=== PATIENT | male | born 1950 | race Caucasian/White ===

== ENCOUNTER → 2017-01-10 | Outpatient (CLI) | payer BC, OTHER | LOC: MW.CHFP 10:50 | PROVIDERS: ATTEND Emergency Medicine | DX: Z12.5 Encounter for screening for malignant neoplasm of prostate (principal); R53.83 Other fatigue | CPT/HCPCS: 36415; 84443; 85025; G0103 ==

== ENCOUNTER 2020-01-02 20:14 | Emergency (ER) | payer OTHER, MEDICARE ==
[2020-01-02] MEDS ORDERED: Sodium Chloride 0.9% 1,000 ML IV ONE ×2 (20:42→21:56)
[2020-01-02] MEDS ORDERED: HYDROmorphone 1 MG/ML Syringe IVPUSH ONE ×3 (20:43→22:49)
[2020-01-02] MEDS ORDERED: Ondansetron 4 MG/2 ML SDV IVPUSH ONE (20:44)
--- NOTE | 2020-01-02 20:50 | EDM.PDOC ---
ED HPI GENERAL MEDICAL PROBLEM - General Chief Complaint: Abdominal Pain Stated Complaint: ABD PAIN Time Seen by Provider: 01/02/20 20:35 Source of Information: Reports: Patient - History of Present Illness INITIAL COMMENTS - FREE TEXT/NARRATIVE: This is a 69-year-old male who presents the emergency room with a chief complaint of right lower abdominal pain nausea and vomiting since last night. She denies chest pain or shortness of breath or cough. The patient's has allergies to erythromycin/trench mouth. Has no history of abdominal surgeries. Patient has a history of Crohn's disease and has multiple colonoscopies. Patient also history has a history of Monahan's esophagitis. His pain scale is 10 out of a 10 at this time 6 out of 10 Duration: Day(s): (2), Getting Worse Location: Reports: Abdomen Quality: Reports: Ache Severity: Severe Improves with: Reports: None Worsens with: Reports: None Associated Symptoms: Reports: Nausea/Vomiting Lower Abdominal Pain Score (Numeric/FACES): 10 - Related Data Allergies Allergy/AdvReac Type Severity Reaction Status Date / Time erythromycin base Allergy Trench Verified 01/02/20 20:25 Mouth Home Meds: Home Meds Pantoprazole [Protonix] 40 mg PO BID 12/07/14 [History] Past Medical History Gastrointestinal History: Reports: GERD - Infectious Disease History Infectious Disease History: Reports: Chicken Pox, Mumps - Past Surgical History Musculoskeletal Surgical History: Reports: Shoulder Surgery, Other (See Below) Other Musculoskeletal Surgeries/Procedures:: elbow surgery. jaw bone grafts Social & Family History - Family History Family Medical History: Noncontributory - Tobacco Use Smoking Status *Q: Former Smoker Used Tobacco, but Quit: Yes Month/Year Tobacco Last Used: 2002 - Caffeine Use Caffeine Use: Reports: None - Recreational Drug Use Recreational Drug Use: No ED ROS GENERAL - Review of Systems Review Of Systems: See Below Constitutional: Reports: No Symptoms HEENT: Reports: No Symptoms Respiratory: Reports: No Symptoms, Other ( No History of travel/cruise ships). Denies: Shortness of Breath, Wheezing, Cough, Sputum Endocrine: Reports: No Symptoms GI/Abdominal: Reports: Abdominal Pain, Nausea, Vomiting : Denies: No Symptoms, Discharge Musculoskeletal: Reports: No Symptoms Skin: Reports: No Symptoms Neurological: Reports: No Symptoms Psychiatric: Reports: No Symptoms Hematologic/Lymphatic: Reports: No Symptoms Immunologic: Reports: No Symptoms ED EXAM, GI/ABD - Physical Exam Exam: See Below Text/Narrative:: This is a 69-year-old male who presents the emergency room with acute abdominal pain for day and a half. On exam HEENT is negative lungs are clear the majority of the exam is the abdomen. Patient has normal active bowel sounds with some distention. Patient has acute right lower quadrant tenderness with rebound tenderness. Patient's extremities are negative. Exam Limited By: No Limitations General Appearance: Alert, WD/WN, Moderate Distress Eyes: Bilateral: Normal Appearance Ears: Normal External Exam, Normal Canal, Hearing Grossly Normal Nose: Normal Inspection, Normal Mucosa Throat/Mouth: Normal Inspection, Normal Lips, Normal Teeth, Normal Oropharynx, Normal Voice Head: Atraumatic, Normocephalic Neck: Normal Inspection, Supple, Non-Tender Respiratory/Chest: No Respiratory Distress, Lungs Clear, Normal Breath Sounds, No Accessory Muscle Use, Chest Non-Tender Cardiovascular: Normal Peripheral Pulses, Regular Rate, Rhythm, No Edema GI/Abdominal Exam: Normal Bowel Sounds, Guarding, Rigid, Rebound, Tender. No: Hernia, Hepatomegaly, Splenomegaly (Male) Exam: Deferred Back Exam: Normal Inspection, Full Range of Motion Extremities: Normal Inspection, Normal Range of Motion Neurological: Alert, Oriented, CN II-XII Intact, Normal Cognition Psychiatric: Normal Affect, Normal Mood Skin Exam: Warm, Dry, Intact, Normal Color, No Rash Lymphatic: No Adenopathy Course - Vital Signs Text/Narrative:: 69-year-old gentleman presents to the emergency room with abdominal pain. Patient felt to have possible appendicitis patient was tachycardic up to 127. Patient's blood pressure however was 130/85. Patient had a white count of 25, 000 and SIRS criteria where his lactate was elevated 2.4. Patient was given 3 3g of Unasyn and 500 mg of Flagyl. Patient's pain was taken care of with Dilaudid 1 mg x 2. Patient was also given Zofran for nausea. Patient also has received 1 L of fluid and is on a second liter of fluid at this time. Patient CT scan shows Crohn's disease acute on chronic with microperforations. Surgical consult was performed by Dr. Schaefer over the phone and he suggested the patient be transferred to a facility where they have GI and surgery. A consult was done also on the phone with Dr. Perez. He states that he has to abide by what surgery has suggested I have discussed the case with Dr. Rg at [facility] . Accepted the patient. Patient has not been on steroids. Patient has a EKG which shows tachycardia at 127 with no acute changes. Electrolytes are abnormal. Patient is in the process of getting IV fluids and a repeat x-ray is in the works within the next hour. She is stable for transfer and will be transferred to a higher level of care hospital Repeat evaluation at 1110. Patient awake and alert and oriented. Patient's heart rate still 123, patient states he is always has a high heart rate. Blood pressure 138/83 Patient's lungs are clear Heart: Patient is tachycardic at 123 EKG shows no acute changes Abdomen generalized abdominal pain to palpation. Patient is still guarding. Patient informed that he will be transferred for higher level of care/we do not have GI at this facility I discussed with an accepting physician Dr. Rg. Patient will be transferred by embossing unit operator/monitored Diagnosis: I. Abdominal pain with acute Crohn'se on chronic Crohn's 2. Microperforation of the ileum III. Septic/elevated white count, elevated lactate, elevated heart rate Last Recorded V/S: Last Vital Signs Temp 97.8 F 01/02/20 20:26 Pulse 124 H 01/02/20 21:56 Resp 16 01/02/20 21:56 BP 137/70 01/02/20 21:56 Pulse Ox 96 01/02/20 21:56 - Orders/Labs/Meds Orders: Active Orders 24 hr Category Date Time Status EKG Documentation Completion [RC] STAT Care 01/02/20 21:02 Active CULTURE BLOOD [BC] Stat Lab 01/02/20 21:00 Received CULTURE BLOOD [BC] Stat Lab 01/02/20 21:16 Received UA W/JESSICA RFLX IF INDICATED [URIN] Stat Lab 01/02/20 20:41 Ordered Blood Culture x2 Reflex Set [OM.PC] Stat Oth 01/02/20 21:00 Ordered Labs: Laboratory Tests 01/02/20 01/02/20 01/02/20 Range/Units 20:40 20:40 20:40 WBC 25.02 H (4.0-11.0) K/uL RBC 5.26 (4.50-5.90) M/uL Hgb 16.8 (13.0-17.0) g/dL Hct 49.2 (38.0-50.0) % MCV 93.5 (80.0-98.0) fL MCH 31.9 (27.0-32.0) pg MCHC 34.1 (31.0-37.0) g/dL RDW Std Deviation 45.3 (28.0-62.0) fl RDW Coeff of Golden 13 (11.0-15.0) % Plt Count 343 (150-400) K/uL MPV 9.30 (7.40-12.00) fL Neut % (Auto) 92.3 H (48.0-80.0) % Lymph % (Auto) 2.6 L (16.0-40.0) % Windsor % (Auto) 5.0 (0.0-15.0) % Eos % (Auto) 0.0 (0.0-7.0) % Baso % (Auto) 0.1 (0.0-1.5) % Neut # (Auto) 23.1 H (1.4-5.7) K/uL Lymph # (Auto) 0.7 (0.6-2.4) K/uL Windsor # (Auto) 1.3 H (0.0-0.8) K/uL Eos # (Auto) 0.0 (0.0-0.7) K/uL Baso # (Auto) 0.0 (0.0-0.1) K/uL Nucleated RBC % 0.0 /100WBC Nucleated RBCs # 0 K/uL Lactate 2.4 H* (0.20-2.00) mmol/L Sodium 139 (136-148) mmol/L Potassium 4.6 (3.5-5.1) mmol/L Chloride 103 (98-107) mmol/L Carbon Dioxide 21.6 (21.0-32.0) mmol/L BUN 13 (7.0-18.0) mg/dL Creatinine 1.2 (0.8-1.3) mg/dL Est Cr Clr Drug Dosing 63.62 mL/min Estimated GFR (MDRD) > 60.0 ml/min Glucose 173 H (74-106) mg/dL Calcium 8.8 (8.5-10.1) mg/dL Total Bilirubin 0.8 (0.2-1.0) mg/dL AST 23 (15-37) IU/L ALT 46 (14-63) IU/L Alkaline Phosphatase 63 (46-116) U/L Total Protein 7.2 (6.4-8.2) g/dL Albumin 3.7 (3.4-5.0) g/dL Globulin 3.5 (2.6-4.0) g/dL Albumin/Globulin Ratio 1.1 (0.9-1.6) Meds: Medications Discontinued Medications Generic Name Dose Route Start Last Admin Trade Name Freq PRN Reason Stop Dose Admin Hydromorphone HCl 1 mg 01/02/20 20:43 01/02/20 20:51 Dilaudid IVPUSH 01/02/20 20:44 1 mg ONETIME ONE Administration Hydromorphone HCl 1 mg 01/02/20 22:48 Dilaudid IVPUSH 01/02/20 22:49 ONETIME ONE Hydromorphone HCl 1 mg 01/02/20 22:49 Dilaudid IVPUSH 01/02/20 22:50 ONETIME ONE Sodium Chloride 1,000 mls @ 999 mls/hr 01/02/20 20:42 01/02/20 20:51 Normal Saline IV 01/02/20 21:42 999 mls/hr .Bolus ONE Administration Ampicillin Sodium/Sulbactam 100 mls @ 200 mls/hr 01/02/20 21:06 01/02/20 21: 45 Sodium 3 gm/ Sodium Chloride IV 01/02/20 21:35 200 mls/hr ONETIME ONE Administration Metronidazole 500 mg/ Premix 100 mls @ 100 mls/hr 01/02/20 21:07 01/02/20 21: 22 IV 01/02/20 22:06 100 mls/hr ONETIME ONE Administration Sodium Chloride 1,000 mls @ 1,000 drops/min 01/02/20 21:56 01/02/20 22:03 Normal Saline IV 01/02/20 22:10 1,000 drops/min .Bolus ONE Administration Iopamidol 100 ml 01/02/20 21:14 01/02/20 21:38 Isovue-370 (76%) IVPUSH 01/02/20 21:15 100 ml ONETIME STA Administration Ondansetron HCl 4 mg 01/02/20 20:44 01/02/20 20:51 Zofran IVPUSH 01/02/20 20:45 4 mg ONETIME ONE Administration Departure - Departure Time of Disposition: 23:19 Disposition: DC/Tfer to Acute Hospital 02 Condition: Good Clinical Impression: Acute Crohn's disease with complication Sepsis Qualifiers: Severe sepsis shock status: unspecified - Discharge Information Instructions: Crohn's Disease Referrals: Giuseppe Real MD [Primary Care Provider] - Forms: ED Department Discharge Sepsis Event Note - Evaluation Sepsis Screening Result: No Definite Risk - Focused Exam Vital Signs: Vital Signs Temp Pulse Resp BP Pulse Ox 01/02/20 21:56 124 H 16 137/70 96 01/02/20 20:51 125 H 16 138/85 93 L 01/02/20 20:26 97.8 F 127 H 19 138/85 94 L Date Exam was Performed: 01/02/20 Time Exam was Performed: 23:02 - My Orders Last 24 Hours: My Active Orders 01/02/20 20:41 UA W/JESSICA RFLX IF INDICATED [URIN] Stat 01/02/20 21:00 CULTURE BLOOD [BC] Stat Blood Culture x2 Reflex Set [OM.PC] Stat 01/02/20 21:02 EKG Documentation Completion [RC] STAT 01/02/20 21:16 CULTURE BLOOD [BC] Stat - Assessment/Plan Last 24 Hours: My Active Orders 01/02/20 20:41 UA W/JESSICA RFLX IF INDICATED [URIN] Stat 01/02/20 21:00 CULTURE BLOOD [BC] Stat Blood Culture x2 Reflex Set [OM.PC] Stat 01/02/20 21:02 EKG Documentation Completion [RC] STAT 01/02/20 21:16 CULTURE BLOOD [BC] Stat
[2020-01-02] MEDS ORDERED: Ampicillin/Sulbactam Na 3 GM in Sodium Chloride 0.9% 100 ML IV ONE (21:06)
[2020-01-02 21:07] LABS: BLOOD UREA NITROGEN,BUN 13 mg/dL (7.0-18.0); CARBON DIOXIDE,CO2 21.6 mmol/L (21.0-32.0); CHLORIDE,CL 103 mmol/L (98-107); GLUCOSE RANDOM 173 mg/dL (74-106); POTASSIUM,K 4.6 mmol/L (3.5-5.1); SODIUM,NA 139 mmol/L (136-148)
[2020-01-02] MEDS ORDERED: metroNIDAZOLE/Normal Saline 500 MG in Premix Bag 1 BAG IV ONE (21:07)
[2020-01-02] MEDS ORDERED: Iopamidol 755 Mg/ML 100 ML Bottle IVPUSH STA (21:14)
--- NOTE | 2020-01-02 21:39 | CR ---
Chest: Portable view of the chest was obtained. Comparison: No prior chest imaging is available. Elevated right hemidiaphragm is seen most likely chronic. Lungs are clear with no acute parenchymal change. Bony structures are grossly intact. Impression: 1. Nothing acute is appreciated on portable chest x-ray. Diagnostic code #2 Study was dictated in [place] Standard Time
--- NOTE | 2020-01-02 22:19 | CT ---
HISTORY: Right lower quadrant pain. TECHNIQUE: Contrast-enhanced CT abdomen and pelvis 100 mL Isovue. COMPARISON: Studies are available. FINDINGS: Heart size is normal. Basilar atelectasis. No pericardial effusion. No pleural effusion. Fluid filled distal esophagus. Basilar atelectasis liver pancreas spleen adrenal glands are unremarkable. Cholelithiasis. Kidneys appear unremarkable too small to characterize tiny low-density lesions both kidneys. No hydronephrosis. Normal caliber abdominal aorta. Heterogeneity and enlargement prostate gland. Urinary bladder appears unremarkable. Normal appendix. Moderate to long terminal segment of terminal ileum with mural thickening and enhancement. Prominent perienteric vascularity with prominent fibrofatty infiltration. Tiny focal area of extraluminal air adjacent to the terminal ileum see series 203, image 38 and series 201, image 1 5 which may represent micro perforation Multifocal areas of stenosis involving the distal ileal bowel loops. No obvious obstruction. Bowel wall thickening of the cecum as well. Normal appendix. Small amount of fluid in the pelvis. Fat containing inguinal hernias. No suspicious bony lesions are seen. Impression: 1. Moderate long segment of mural thickening and enhancement of the terminal ileum with multifocal areas of stenosis as well. Perienteric inflammatory change and increased vascularity. There is a tiny focal area of extraluminal air adjacent to the terminal ileum which may represent microperforation. Findings suggest acute on chronic Crohn`s. 2. Heterogeneous and enlargement of the prostate gland. Please note that all CT scans at this facility use dose modulation, iterative reconstruction, and/or weight-based dosing when appropriate to reduce radiation dose to as low as reasonably achievable. Dictated by Payal Interiano MD @ Jan 02 2020 9:58PM Signed by Dr. Payal Interiano @ Jan 02 2020 10:18PM
[2020-01-03] MEDS ORDERED: Sodium Chloride 0.9% 1,000 ML IV ONE (00:11)
[2020-01-03] MEDS ORDERED: Ondansetron 4 MG/2 ML SDV IVPUSH ONE (00:15)
[2020-01-03] MEDS ORDERED: HYDROmorphone 1 MG/ML Syringe IVPUSH ONE (00:15)
== END 2020-01-03 00:30 ==
LOC: MW.ED 20:14
DX: A41.9 Sepsis, unspecified organism (principal); K50.90 Crohn's disease, unspecified, without complications; K63.1 Perforation of intestine (nontraumatic); R74.0 Nonspecific elevation of levels of transaminase and lactic acid dehydrogenase [LDH]; D72.829 Elevated white blood cell count, unspecified; K21.9 Gastro-esophageal reflux disease without esophagitis; Z88.1 Allergy status to other antibiotic agents; Z79.899 Other long term (current) drug therapy; Z87.891 Personal history of nicotine dependence
CPT/HCPCS: 36415; 71045; 74177; 80053; 81003; 83605; 85025; 87040; 87075; 93005; 99285; J0295; J1170; J2405; J3490; J7030; J7050; Q9967; 99284

== ENCOUNTER 2020-01-25 06:41 | Emergency (ER) | payer OTHER, MEDICARE ==
[2020-01-25] MEDS ORDERED: Iopamidol 755 MG/ML 500 ML Multipack Bottle IVPUSH STA (08:26)
[2020-01-25 08:48] LABS: BLOOD UREA NITROGEN,BUN 16 mg/dL (7.0-18.0); CARBON DIOXIDE,CO2 22.3 mmol/L (21.0-32.0); CHLORIDE,CL 101 mmol/L (98-107); GLUCOSE RANDOM 118 mg/dL (74-106); LIPASE 139 U/L (73-393); POTASSIUM,K 3.9 mmol/L (3.5-5.1); SODIUM,NA 136 mmol/L (136-148)
--- NOTE | 2020-01-25 08:50 | CT ---
CT abdomen and pelvis Technique: Multiple axial sections were obtained from above the dome of the diaphragm inferiorly through the pubic symphysis. Intravenous contrast was utilized. No oral contrast has been given. Comparison: Prior CT abdomen and pelvis exam of 01/25/20. Findings: 2 adjacent calculi are noted within the distal CBD. Collectively these measure about 4.7 mm. No other abnormal calcifications are seen within the CBD. Gallbladder is mildly dilated. No calcified gallstones are seen. Mild intrahepatic biliary duct dilatation is seen. Visualized lung bases show nothing acute. Liver contains no focal parenchymal abnormality. Small hiatal hernia is noted. Spleen appears normal. Adrenal glands show contrast enhancement. Small low density finding is noted within the left kidney measuring about 5 mm most likely representing a minimal cyst. Small cortical lesion also seen within the right kidney measuring about 7 mm also most likely due to a small cyst. No additional abnormalities are seen within the kidneys. Pancreas shows no discrete abnormality. Aorta shows no aneurysm with mild atherosclerotic change. Atherosclerotic change continues into the iliac vessels. No retroperitoneal adenopathy or mesenteric abnormalities are seen. No pelvic mass or adenopathy is seen. No free fluid or inflammatory change is seen. Small fat-containing bilateral inguinal hernias are noted. Appendix is seen which is normal in size. Bone window settings were reviewed. Slight scattered degenerative change is noted. No acute osseous finding is seen. Impression: 1. 2 small adjacent calcified CBD stones are seen distally within the CBD. Intrahepatic and mild extrahepatic biliary duct dilatation is seen as well as dilated gallbladder. One calcification is seen more proximally within the CBD or gallbladder on prior exam with dilated CBD and intrahepatic biliary duct dilatation on current study representing an interval change. 2. Small hiatal hernia. 3. Other findings believed to be incidental and nonacute as described above. Diagnostic code #3 This report was dictated in MDT
[2020-01-25] MEDS ORDERED: Sodium Chloride 0.9% 1,000 ML IV ONE (09:16)
--- NOTE | 2020-01-25 10:04 | EDM.PDOC ---
ED HPI GENERAL MEDICAL PROBLEM - General Chief Complaint: General Stated Complaint: YELLOW EYES Time Seen by Provider: 01/25/20 07:07 - History of Present Illness INITIAL COMMENTS - FREE TEXT/NARRATIVE: HPI 69 year old male with history of Crohns disease, Barretts esophagus, and recent sepsis 2/2 microperforation of the ileum presents with ~1 day of new onset jaundice, one week of light colored floating stools and recent onset dark urine. No fevers, chills, malaise, or pruritus. M/S/F/SocHx notable for: please see HPI; remainder reviewed with patient and in chart. ROS: Negative constitutional, eye, cardiovascular, pulmonary, GI, , MSK, skin , neurologic, psychiatric, endocrine unless noted in the HPI. Exam HR 108, RR 16, BP 126/72, T 35.6C, SaO2 97% on room air at 6:53 AM. Gen: Pleasant, non-toxic appearing, resting comfortably. HEENT: NC, AT, PEERL, EOMI. Resp: Clear to auscultation bilaterally, normal work of breathing, no accessory muscle usage. Card: Regular rate and rhythm with no murmurs, rubs, or gallops, extremities warm and well perfused. GI: Non-tender to palpation throughout all quadrants, no focal tenderness at McBurney's point, negative Moreno's sign, non-distended, no rebound or guarding. : No suprapubic tenderness to palpation. MSK: No visible deformities, strength and tone without visually appreciable deficit. Skin: jaundice, otherwise normal color with no further visible lesions. Neuro: alert and oriented 3, no facial asymmetry, vision and hearing WNL. Psych: Mood and affect appropriate. Labs / Imaging: WBC 7.7, HB 14.3, sodium 136, potassium 3.9, total bilirubin 11.2, AST 114, ALT 263, alkaline phosphatase 388, lipase 139. CT Abd/Pelvis: 1. 2 small adjacent calcified CBD stones are seen distally within the CBD. Intrahepatic and mild extrahepatic biliary duct dilatation is seen as well as dilated gallbladder. One calcification is seen more proximally within the CBD or gallbladder on prior exam with dilated CBD and intrahepatic biliary duct dilatation on current study representing an interval change. 2. Small hiatal hernia. MDM Previous chart, nursing note, labs, imaging, and vitals reviewed. A: 69 year old male with history of Crohns disease, Barretts esophagus, and recent sepsis 2/2 microperforation of the ileum presents with ~1 day of new onset jaundice, one week of light colored floating stools and recent onset dark urine. DDx: cholelithiasis, cholangitis, cholecystitis, choledocholithiasis, mass. Evaluation: imaging with multiple CBD stones and ductal dilatation, given the liver enzyme elevation with a total bilirubin 11.2, along with the non-toxic appearance, and a normal white blood cell count strongly suspect choledocholithiasis without further complications. ED Course: 1. Suspect initial vitals to be inaccurate. Rechecked by myself at 7:15 AM with a resting heart rate of 83, BP of 119/70. 2. 1 L NS given. 3. 09:20 - general surgery paged. 4. 09:31 - discuss case with the general surgeon economic historian, Dr. Cantu. Patient cannot be appropriately care for this facility, recommended transfer to [place]. 5. 09:40 Dr. Bonner, GI physician economic historian. Patient be appropriate for intervention. Requested patient be accepted by hospitalist. 6. 09:47 - Dr. Nicoel (hospitalist), patient accepted in transfer. Disposition: patient wished to be transferred by private vehicle, transferred to [facility] in [facility]. Patient advised of increased risk by traveling by POV and made an informed decision to decline ambulance transfer. Impression: choledocholithiasis. (please reference below for remainder of encounter information) Critical Care Time Organ system(s): GI Intervention: Assessment of the patient, interpretation of studies, communication related to patient care. Time: 30 minutes were spent directly related to patient care exclusive of separately billed procedures. - Related Data Allergies Allergy/AdvReac Type Severity Reaction Status Date / Time erythromycin base Allergy Trench Verified 01/25/20 07:01 Mouth Home Meds: Home Meds Pantoprazole [Protonix] 40 mg PO BID 12/07/14 [History] Past Medical History HEENT History: Reports: Impaired Vision Gastrointestinal History: Reports: GERD, Other (See Below) Other Gastrointestinal History: chron's, micro perf in illium. - Infectious Disease History Infectious Disease History: Reports: Measles, Mumps - Past Surgical History Musculoskeletal Surgical History: Reports: Shoulder Surgery, Other (See Below) Other Musculoskeletal Surgeries/Procedures:: elbow surgery. jaw bone grafts Social & Family History - Family History Family Medical History: Noncontributory - Tobacco Use Smoking Status *Q: Former Smoker Used Tobacco, but Quit: Yes Month/Year Tobacco Last Used: 2002 - Caffeine Use Caffeine Use: Reports: None - Recreational Drug Use Recreational Drug Use: No ED ROS GENERAL - Review of Systems Review Of Systems: See Below ED EXAM, GENERAL - Physical Exam Exam: See Below Course - Vital Signs Last Recorded V/S: Last Vital Signs Temp 35.6 C L 01/25/20 06:53 Pulse 72 01/25/20 09:21 Resp 15 01/25/20 09:21 BP 106/71 01/25/20 09:21 Pulse Ox 97 01/25/20 09:21 - Orders/Labs/Meds Orders: Active Orders 24 hr Category Date Time Status Sodium Chloride 0.9% [Normal Saline] 1,000 ml Med 01/25/20 09:16 Active IV .Bolus Medication Orders Sodium Chloride (Normal Saline) 1,000 mls @ 1,000 mls/hr IV .Bolus ONE Stop: 01/25/20 10:15 Last Admin: 01/25/20 09:20 Dose: 1,000 mls/hr Labs: Laboratory Tests 01/25/20 01/25/20 Range/Units 08:02 08:02 WBC 7.69 (4.0-11.0) K/uL RBC 4.51 (4.50-5.90) M/uL Hgb 14.3 (13.0-17.0) g/dL Hct 42.7 (38.0-50.0) % MCV 94.7 (80.0-98.0) fL MCH 31.7 (27.0-32.0) pg MCHC 33.5 (31.0-37.0) g/dL RDW Std Deviation 48.6 (28.0-62.0) fl RDW Coeff of Golden 14 (11.0-15.0) % Plt Count 331 (150-400) K/uL MPV 10.00 (7.40-12.00) fL Neut % (Auto) 74.4 (48.0-80.0) % Lymph % (Auto) 13.7 L (16.0-40.0) % Casey % (Auto) 10.8 (0.0-15.0) % Eos % (Auto) 0.7 (0.0-7.0) % Baso % (Auto) 0.4 (0.0-1.5) % Neut # (Auto) 5.7 (1.4-5.7) K/uL Lymph # (Auto) 1.1 (0.6-2.4) K/uL Casey # (Auto) 0.8 (0.0-0.8) K/uL Eos # (Auto) 0.1 (0.0-0.7) K/uL Baso # (Auto) 0.0 (0.0-0.1) K/uL Nucleated RBC % 0.0 /100WBC Nucleated RBCs # 0 K/uL Sodium 136 (136-148) mmol/L Potassium 3.9 (3.5-5.1) mmol/L Chloride 101 (98-107) mmol/L Carbon Dioxide 22.3 (21.0-32.0) mmol/L BUN 16 (7.0-18.0) mg/dL Creatinine 1.0 (0.8-1.3) mg/dL Est Cr Clr Drug Dosing 78.68 mL/min Estimated GFR (MDRD) > 60.0 ml/min Glucose 118 H (74-106) mg/dL Calcium 8.9 (8.5-10.1) mg/dL Total Bilirubin 11.2 H (0.2-1.0) mg/dL AST 114 H (15-37) IU/L ALT 263 H (14-63) IU/L Alkaline Phosphatase 388 H (46-116) U/L Total Protein 7.0 (6.4-8.2) g/dL Albumin 3.1 L (3.4-5.0) g/dL Globulin 3.9 (2.6-4.0) g/dL Albumin/Globulin Ratio 0.8 L (0.9-1.6) Lipase 139 (73-393) U/L Meds: Medications Generic Name Dose Route Start Last Admin Trade Name Dejah PRN Reason Stop Dose Admin Sodium Chloride 1,000 mls @ 1,000 mls/hr 01/25/20 09:16 01/25/20 09:20 Normal Saline IV 01/25/20 10:15 1,000 mls/hr .Bolus ONE Administration Discontinued Medications Generic Name Dose Route Start Last Admin Trade Name Freq PRN Reason Stop Dose Admin Iopamidol 100 ml 01/25/20 08:26 01/25/20 08:27 Isovue Multipack-370 (76%) IVPUSH 01/25/20 08:27 100 ml ONETIME STA Administration Departure - Departure Time of Disposition: 09:54 Disposition: DC/Tfer to Other 70 Clinical Impression: Choledocholithiasis - Discharge Information Referrals: Giuseppe Real MD [Primary Care Provider] - Additional Instructions: You were in seen in the [facility] Emergency Department for evaluation of jaundice (yellowing of the skin). You were found to have stones in your common bile duct leading to condition, choledocholithiasis. Treatment this condition requires a GI physician, the closest GI physician is at [facility] in [place]. You have been offered transfer by an ambulance to [facility]. You made an informed decision to decline ambulance transfer. As we discussed this comes with increased risk that you may have worsening of your symptoms, which could lead to significant harm or . Please proceed directly to [facility] in [facility], you have been accepted for admission by Dr. Nicole, the hospitalist on duty. Please read and follow all of the instructions below. Sepsis Event Note - Evaluation Sepsis Screening Result: No Definite Risk - Focused Exam Vital Signs: Vital Signs Temp Pulse Resp BP Pulse Ox 01/25/20 09:21 72 15 106/71 97 01/25/20 06:53 35.6 C L 108 H 16 126/72 97 Date Exam was Performed: 01/25/20 Time Exam was Performed: 09:53 - My Orders Last 24 Hours: My Active Orders 01/25/20 09:16 Sodium Chloride 0.9% [Normal Saline] 1,000 ml IV .Bolus - Assessment/Plan Last 24 Hours: My Active Orders 01/25/20 09:16 Sodium Chloride 0.9% [Normal Saline] 1,000 ml IV .Bolus
== END 2020-01-25 10:25 | disposition other institution (70) ==
LOC: MW.ED 06:41
DX: K80.50 Calculus of bile duct without cholangitis or cholecystitis without obstruction (principal); Z87.891 Personal history of nicotine dependence; Z88.1 Allergy status to other antibiotic agents
CPT/HCPCS: 36415; 74177; 80053; 83690; 85025; 96360; 99285; J7030; Q9967; 99284

== ENCOUNTER 2024-07-07 16:15 | Emergency (ER) | payer OTHER, MEDICARE | END 2024-07-07 20:05 | disposition home or self-care (01) | LOC: MW.ED 16:15 | DX: M79.604 Pain in right leg (principal); Z75.8 Other problems related to medical facilities and other health care; Z90.49 Acquired absence of other specified parts of digestive tract; K21.9 Gastro-esophageal reflux disease without esophagitis; Z79.899 Other long term (current) drug therapy; Z88.0 Allergy status to penicillin | CPT/HCPCS: 73502-26-RT; 73502-RT; 73552-26-LT; 73552-RT; 99283 ==

== ENCOUNTER 2024-07-15 06:43 | Day surgery (SDC) | payer OTHER, MEDICARE ==
[2024-07-15] MEDS ORDERED: Sugammadex Sodium 200 MG/2 ML VIAL IV ONE (07:00)
[2024-07-15] MEDS ORDERED: Naloxone 0.4 MG/ML SDV IVPUSH PRN (07:03)
[2024-07-15] MEDS ORDERED: HYDROmorphone 1 MG/ML Syringe IVPUSH PRN (07:03)
[2024-07-15] MEDS ORDERED: fentaNYL 50 MCG/ML SDV IVPUSH PRN (07:03)
[2024-07-15] MEDS ORDERED: Ondansetron 4 MG/2 ML SDV IVPUSH PRN (07:03)
[2024-07-15] MEDS ORDERED: Albuterol 0.083% 2.5 MG/3 ML Neb Soln NEB PRN (07:03)
[2024-07-15] MEDS ORDERED: Phenylephrine HCl In 0.9% NaCl 1 MG/10 ML Syringe IVPUSH PRN (07:03)
[2024-07-15] MEDS ORDERED: Metoclopramide 10 MG/2 ML SDV IVPUSH PRN (07:03)
[2024-07-15] MEDS ORDERED: droPERidol 5 MG/2 ML SDV IVPUSH PRN (07:03)
[2024-07-15] MEDS ORDERED: Morphine 2 MG/ML SYRINGE IVPUSH PRN (07:03)
[2024-07-15] MEDS: Lactated Ringers 1,000 ML IV SCH (07:05)
[2024-07-15] MEDS ORDERED: fentaNYL 250 MCG/5 ML SDV ONE (07:06)
[2024-07-15] MEDS ORDERED: dexmedeTOMIDine HCl 200 MCG/2 ML SDV ONE (07:06)
[2024-07-15] MEDS ORDERED: Propofol 200 MG/20 ML SDV ONE ×2 (07:06→07:31)
[2024-07-15] MEDS ORDERED: Dexamethasone 4 MG/ML 5 ML MDV ONE (07:06)
[2024-07-15] MEDS ORDERED: Water For Injection, Sterile 20 ML ONE (07:07)
[2024-07-15] MEDS ORDERED: Lidocaine 2% 5 ML SDV ONE (07:08)
[2024-07-15] MEDS ORDERED: Bupivacaine 0.5% 10 ML SDV ONE (07:16)
[2024-07-15] MEDS ORDERED: Bupivacaine 0.5%/EPINEPHrine 1:200,000 30 ML SDV ONE (07:16)
[2024-07-15] MEDS ORDERED: Rocuronium Bromide 50 MG/5 ML Syringe ONE (07:17)
[2024-07-15] MEDS ORDERED: Bupivacaine 0.5% 30 ML SDV ONE (07:23)
[2024-07-15] MEDS ORDERED: fentaNYL 100 MCG/2 ML SDV ONE (07:25)
[2024-07-15] MEDS ORDERED: Lidocaine 2% 11 ML Jelly Filled Syringe ONE (07:27)
[2024-07-15] MEDS ORDERED: ceFAZolin 2 GM Vial ONE (07:59)
[2024-07-15] MEDS ORDERED: ceFAZolin 2 GM in Sodium Chloride 0.9% 50 ML IV ONE (08:00)
[2024-07-15] MEDS ORDERED: Ketorolac 30 MG/ML SDV ONE (08:55)
== END 2024-07-15 12:05 | disposition home or self-care (01) ==
LOC: MW.SDS 06:43
PROVIDERS: ATTEND Orthopaedic Surgery
DX: S76.111A Strain of right quadriceps muscle, fascia and tendon, initial encounter (principal); K21.9 Gastro-esophageal reflux disease without esophagitis; X58.XXXA Exposure to other specified factors, initial encounter
CPT/HCPCS: 27385; A9270; J0131; J0665; J0690; J1100; J1885; J2371; J2704; J3010; J3490; J7120; 01320; 64447; 99100